=== PATIENT | female | born 1980 | race Caucasian/White ===

== ENCOUNTER 2022-04-15 14:28 | Emergency (ER) | payer OTHER, SELFPAY ==
[2022-04-15 14:36] VITALS: BP 127/72; PULSE 123; RESP 16; TEMP 37.2; O2SAT 99
--- NOTE | 2022-04-15 15:41 | ED.URI ---
HPI - URI/Sore Throat General Chief Complaint: Upper Respiratory Infection Stated Complaint: lungs on fire and back and neck aches Source: patient Mode of arrival: ambulatory Limitations: no limitations History of Present Illness HPI Narrative: 42-year-old female presents to [facility] with complaints of cough, headache and feeling that her lungs are on fire for the past 4-5 weeks. Patient has not tried taking any ooza-ikw-wdewedo medications for symptoms. Patient denies fever, shortness of breath, wheezing, nausea, vomiting or diarrhea. Patient's children are currently ill with cold-like symptoms. MD elicited complaint: cough and other (headache ) Onset (ago): week(s) (4-5) Able to tolerate fluids by mouth: Yes Context: sick contacts Treatments prior to arrival: none Related Data Allergies Allergy/AdvReac Type Severity Reaction Status Date / Time No Known Allergies Allergy Verified 04/15/22 15:20 Review of Systems Constitutional: Constitutional: Denies chills, Denies fatigue, Denies fever(s) and Denies weakness ENT: Denies vertigo and Denies dizziness Cardiovascular: Cardiovascular: Denies chest pain Respiratory: Respiratory: Reports cough, Denies dyspnea and Denies wheezing Gastrointestinal: Gastrointestinal: Denies abdominal pain, Denies diarrhea, Denies nausea and Denies vomiting Integumentary/Breasts: Skin/Breast: Denies rash Neurologic: Denies dizziness Allergic/Immunologic: Allergic/Immunologic: Denies as per HPI, Denies lip swelling, Denies throat swelling, Denies tongue swelling and Denies wheezing PMFSH Comments At time of signature, I agree with nursing past medical, surgical, social and family history. There is no relevant family history pertinent to the presenting complaint. Exam Const: General: healthy appearing Nutritional Appearance: well nourished Orientation/consciousness: patient oriented x3 Limitations: no limitations HENMT: Head: normal to inspection Ears: external ears normal and TM's normal bilaterally Face/Nose/Sinus: Normal external nose present and Normal nares present Face and sinus: normal facial exam Mouth: Yes Normal oral and palatal mucosa present, Yes lip normal and Yes moist mucous membranes Teeth and gingiva: dentition normal Throat: posterior oropharynx normal and uvula midline Resp: Effort & Inspection: normal respiratory effort Auscultation: clear to auscultation bilaterally, no crackles, no rales, no rhonchi and no wheezes Cardio: Rate: regular rate Rhythm: regular rhythm Heart sounds: no murmurs Skin: General skin exam: normal color Rashes: no rashes Wounds: no wounds Neuro: Speech: normal speech Gait exam (Neuro): Normal gait present Psych: Affect: normal affect Attitude: cooperative Course Course Level of Care: Express Care Visit Vital Signs Vital signs: Vital Signs Temperature 37.2 C 04/15/22 14:36 Pulse Rate 123 H 04/15/22 14:36 Respiratory Rate 16 04/15/22 14:36 Blood Pressure 127/72 04/15/22 14:36 Pulse Oximetry 99 04/15/22 14:36 Oxygen Delivery Room Air 04/15/22 14:36 Temperature 37.2 C 04/15/22 14:36 Pulse Rate 123 H 04/15/22 14:36 Respiratory Rate 16 04/15/22 14:36 Blood Pressure 127/72 04/15/22 14:36 Pulse Oximetry 99 04/15/22 14:36 Oxygen Delivery Room Air 04/15/22 14:36 MDM - URI/Sore Throat MDM Narrative Medical decision making narrative: Patient declines chest x-ray at this time. Patient agrees to take medications as prescribed. Patient agrees to follow-up with primary care provider if symptoms do not improve Differential Diagnosis Differential diagnosis: Likely otitis media, sinusitis and viral infection Critical Care Time Critical Care Time Critical Care Time: No Discharge Plan Discharge Clinical Impression: Upper respiratory infection Patient Disposition: Home, Self-Care Condition: Stable Instructions: Antibiotic Form, Acute Cough (ED) Additional Instructions
== END 2022-04-15 16:01 | disposition home or self-care (01) ==
PROVIDERS: Emergency Provider Nurse Practitioner Family
DX: J06.9 Acute upper respiratory infection, unspecified (principal)
CPT/HCPCS: 99213; G0463